=== PATIENT | male | born 1965 | race Caucasian/White ===

== ENCOUNTER 2025-07-16 11:01 | Day surgery (SDC) | payer OTHER ==
[~2025-07-16] VITALS: Ht 180.3 cm; Wt 94.6 kg
[~2025-07-16 11:01] MED LIST: FAMO20 PO; SIMV40 PO; TESTOSTERONE60 GM; TESTOSTERONE60 GM TD
[2025-07-16] MEDS ORDERED: ESOM20 PO (11:32)
== END 2025-07-16 13:32 | disposition home or self-care (01) ==
LOC: ORSCSDS 11:01
PROVIDERS: Specialist
PROC: 0DB68ZX Excision of Stomach, Via Natural or Artificial Opening Endoscopic, Diagnostic (ICD-10-PCS; principal; 2025-07-16 12:30)
PROC: 0D758ZZ Dilation of Esophagus, Via Natural or Artificial Opening Endoscopic (ICD-10-PCS; principal; 2025-07-16 12:30)
PROC: 0DB58ZX Excision of Esophagus, Via Natural or Artificial Opening Endoscopic, Diagnostic (ICD-10-PCS; principal; 2025-07-16 12:30)
PROC: 0DJD8ZZ Inspection of Lower Intestinal Tract, Via Natural or Artificial Opening Endoscopic (ICD-10-PCS; principal; 2025-07-16 12:30)
DX: R13.10 Dysphagia, unspecified (principal); K22.2 Esophageal obstruction; K44.9 Diaphragmatic hernia without obstruction or gangrene; K21.9 Gastro-esophageal reflux disease without esophagitis; Z12.11 Encounter for screening for malignant neoplasm of colon; K57.30 Diverticulosis of large intestine without perforation or abscess without bleeding; K64.8 Other hemorrhoids; Z80.0 Family history of malignant neoplasm of digestive organs; Z86.0100 Personal history of colon polyps, unspecified; E78.5 Hyperlipidemia, unspecified; Z79.899 Other long term (current) drug therapy
CPT/HCPCS: 88305; 88342; C1769; J2704; J7120